=== PATIENT | female | born 1955 | race Caucasian/White ===

== ENCOUNTER → 2021-05-26 | Outpatient (CLI) | payer MEDICARE, OTHER | LOC: MAMO 12:59 | DX: Z12.31 Encounter for screening mammogram for malignant neoplasm of breast (principal); F41.9 Anxiety disorder, unspecified; M81.0 Age-related osteoporosis without current pathological fracture; G47.00 Insomnia, unspecified; M85.852 Other specified disorders of bone density and structure, left thigh | CPT/HCPCS: 77063; 77067; 77080 ==

== ENCOUNTER → 2022-01-19 | Day surgery (SDC) | payer MEDICARE, OTHER ==
[~2022-01-19] MED LIST: DIAZEPAM5 MG PO; VITAMIN D21250 MCG PO
== END | disposition home or self-care (01) ==
LOC: OR 07:20
PROVIDERS: Internal Medicine Gastroenterology
PROC: 0DB78ZX Excision of Stomach, Pylorus, Via Natural or Artificial Opening Endoscopic, Diagnostic (ICD-10-PCS; principal; 2022-01-19 11:20)
DX: K29.50 Unspecified chronic gastritis without bleeding (principal); K21.9 Gastro-esophageal reflux disease without esophagitis; Z20.822 Contact with and (suspected) exposure to COVID-19
CPT/HCPCS: J2704; J7040

== ENCOUNTER → 2022-03-26 | Outpatient (CLI) | payer MEDICARE, OTHER | LOC: KOH-I 10:53 | DX: M25.552 Pain in left hip (principal); F32.9 Major depressive disorder, single episode, unspecified; G47.00 Insomnia, unspecified; R63.5 Abnormal weight gain; F41.9 Anxiety disorder, unspecified; N81.2 Incomplete uterovaginal prolapse; E55.9 Vitamin D deficiency, unspecified; M85.80 Other specified disorders of bone density and structure, unspecified site; R14.2 Eructation; K44.9 Diaphragmatic hernia without obstruction or gangrene; M47.816 Spondylosis without myelopathy or radiculopathy, lumbar region; M16.0 Bilateral primary osteoarthritis of hip | CPT/HCPCS: 72100; 73522 ==

== ENCOUNTER → 2022-04-14 | Outpatient (CLI) | payer MEDICARE, OTHER ==
[~2022-04-14] MED LIST changes: +NEURONTIN100 MG PO
[2022-04-14 12:08] LABS: HEMOGLOBIN 12.9 gm/dl (12.3-15.3); RED BLOOD COUNT 4.47 M/UL (4.00-5.10); WHITE BLOOD COUNT 7.1 K/UL (4.5-11.0)
== END ==
LOC: OPSV2 08:34
PROVIDERS: Obstetrics & Gynecology
DX: Z01.818 Encounter for other preprocedural examination (principal); N81.9 Female genital prolapse, unspecified; J84.9 Interstitial pulmonary disease, unspecified
CPT/HCPCS: 71046; 81001; 85025; 93005

== ENCOUNTER 2022-04-21 05:15 | Day surgery (SDC) | payer MEDICARE, OTHER ==
[~2022-04-21] VITALS: Ht 175.3 cm; Wt 85.3 kg
[2022-04-21] MEDS ORDERED: HYDROCODONE-AC1 EACH PO (08:22)
[2022-04-21] MEDS ORDERED: IBUPROFEN600 MG PO (08:22)
[2022-04-21] MEDS ORDERED: DOCUSATE SODIU250 MG PO (08:22)
[2022-04-21] MEDS ORDERED: GABAPENTIN100 MG PO (14:16)
== END 2022-04-22 13:05 | disposition home or self-care (01) ==
LOC: OR 05:15 → MED SURG 4 13:40 → OR 04-22 13:05
PROVIDERS: Obstetrics & Gynecology
PROC: 0UT74ZZ Resection of Bilateral Fallopian Tubes, Percutaneous Endoscopic Approach (ICD-10-PCS; 2022-04-21)
PROC: 0UT94ZZ Resection of Uterus, Percutaneous Endoscopic Approach (ICD-10-PCS; principal; 2022-04-21 07:30)
PROC: 0UT24ZZ Resection of Bilateral Ovaries, Percutaneous Endoscopic Approach (ICD-10-PCS; 2022-04-21 07:30)
DX: N81.4 Uterovaginal prolapse, unspecified (principal); K44.9 Diaphragmatic hernia without obstruction or gangrene; M06.9 Rheumatoid arthritis, unspecified
CPT/HCPCS: C1769; J0690; J1100; J1170; J1885; J2001; J2250; J2370; J2405; J2704; J2710; J3010

== ENCOUNTER → 2022-06-14 | Outpatient (CLI) | payer MEDICARE, OTHER ==
[~2022-06-14] MED LIST changes: +DOCUSATE SODIU250 MG PO; +GABAPENTIN100 MG PO; +HYDROCODONE-AC1 EACH PO; +IBUPROFEN600 MG PO; +NEURONTIN300 MG PO; +PERCOCET 5/325 T1 EA PO
[2022-06-14 11:45] LABS: HEMOGLOBIN 12.5 gm/dl (12.3-15.3); RED BLOOD COUNT 4.31 M/UL (4.00-5.10); WHITE BLOOD COUNT 6.2 K/UL (4.5-11.0)
[2022-06-14 12:31] LABS: BUN/CREATININE RATIO 13 (0-10)
== END ==
LOC: OPSV2 10:00 → EDSTATUS 10:00 → OPSV2 10:36
PROVIDERS: Orthopaedic Surgery
DX: Z01.812 Encounter for preprocedural laboratory examination (principal); M16.11 Unilateral primary osteoarthritis, right hip
CPT/HCPCS: 80048; 85025; 85610; 85730

== ENCOUNTER → 2022-06-28 | Outpatient (CLI) | payer MEDICARE, OTHER ==
[~2022-06-28] MED LIST changes: +CYCLOBENZAPRINE10 MG PO; +DOCUSATE SODIU100 MG PO; +ELIQUIS2.5 MG PO; +ENDOCET 7.5-321 EACH PO; +FERROUS GLUCON324 M1 PO; +MIDODRINE HCL5 MG PO; +MIRALAX17 GM PO; +PROTONIX 40 MG40 M1 PO; +ZOFRAN 4 MG TAB4 MG PO
[2022-06-28 12:04] LABS: BUN/CREATININE RATIO 13 (0-10)
== END ==
LOC: LAB 10:24
PROVIDERS: Orthopaedic Surgery
DX: Z01.818 Encounter for other preprocedural examination (principal)
CPT/HCPCS: 36415; 80048; 86850; 86900; 86901

== ENCOUNTER 2022-06-29 06:06 | Day surgery (SDC) | payer MEDICARE, OTHER ==
[~2022-06-29] VITALS: Ht 177.8 cm; Wt 85.3 kg
[~2022-06-29 06:06] MED LIST changes: -CYCLOBENZAPRINE10 MG PO; -DOCUSATE SODIU100 MG PO; -ELIQUIS2.5 MG PO; -ENDOCET 7.5-321 EACH PO; -FERROUS GLUCON324 M1 PO; -MIDODRINE HCL5 MG PO; -MIRALAX17 GM PO; -PROTONIX 40 MG40 M1 PO; -ZOFRAN 4 MG TAB4 MG PO
[2022-06-29] MEDS ORDERED: ELIQUIS2.5 MG PO (11:22)
[2022-06-29] MEDS ORDERED: CYCLOBENZAPRINE10 MG PO (11:22)
[2022-06-29] MEDS ORDERED: ZOFRAN 4 MG TAB4 MG PO (11:22)
[2022-06-29] MEDS ORDERED: ENDOCET 7.5-321 EACH PO (11:22)
[2022-06-30 03:27] LABS: HEMOGLOBIN 9.1 gm/dl (12.3-15.3); RED BLOOD COUNT 3.08 M/UL (4.00-5.10); WHITE BLOOD COUNT 12.2 K/UL (4.5-11.0)
[2022-06-30 03:55] LABS: BUN/CREATININE RATIO 23 (0-10)
[2022-07-01 02:57] LABS: HEMOGLOBIN 8.4 gm/dl (12.3-15.3); RED BLOOD COUNT 2.89 M/UL (4.00-5.10)
[2022-07-01 03:02] LABS: WHITE BLOOD COUNT 8.1 K/UL (4.5-11.0)
[2022-07-01 03:33] LABS: BUN/CREATININE RATIO 19 (0-10)
[2022-07-01] MEDS ORDERED: CYCLOBENZAPRINE10 MG PO (08:48)
[2022-07-01] MEDS ORDERED: MIDODRINE HCL5 MG PO (08:48)
[2022-07-01] MEDS ORDERED: MIRALAX17 GM PO (08:48)
[2022-07-01] MEDS ORDERED: FERROUS GLUCON324 M1 PO (08:48)
[2022-07-01] MEDS ORDERED: PROTONIX 40 MG40 M1 PO (08:48)
[2022-07-01] MEDS ORDERED: DOCUSATE SODIU100 MG PO (08:48)
--- NOTE | 2022-07-01 12:26 | NUR ---
07/01/22 1220 REPORT CALLED TO ANCELMO RODRIGUEZ [facility]
[2022-07-01] MEDS ORDERED: DIAZEPAM5 MG PO (13:04)
[2022-07-01] MEDS ORDERED: NEURONTIN300 MG PO (13:04)
== END 2022-07-01 13:15 ==
LOC: CCU 06:06 → OR 06:06 → CCU 14:56 → M/S 06-30 16:44 → OR 07-01 13:15
PROVIDERS: Orthopaedic Surgery
PROC: 0SR90JA Replacement of Right Hip Joint with Synthetic Substitute, Uncemented, Open Approach (ICD-10-PCS; principal; 2022-06-29 11:00)
DX: M16.0 Bilateral primary osteoarthritis of hip (principal); Z20.822 Contact with and (suspected) exposure to COVID-19; K21.9 Gastro-esophageal reflux disease without esophagitis; K44.9 Diaphragmatic hernia without obstruction or gangrene; M85.80 Other specified disorders of bone density and structure, unspecified site; G62.9 Polyneuropathy, unspecified; I95.9 Hypotension, unspecified; F32.A Depression, unspecified; F41.9 Anxiety disorder, unspecified; Z79.899 Other long term (current) drug therapy
CPT/HCPCS: 36415; 73501; 73502; 76000; 80048; 83540; 83550; 85027; 93970; 97110-GP-CQ; 97116-GP-CQ; 97162; 97166; 97530; 97535; C1776; J0690; J1100; J1170; J1200; J1885; J2274; J2405; J2704; J3010; J3370; J3475; J7050; U0002